=== PATIENT | male | born 1930 | race Caucasian/White ===

== ENCOUNTER 2017-04-16 22:27 | Emergency (ER) | payer MEDICARE, MEDICAID ==
[~2017-04-16] VITALS: Ht 162.6 cm; Wt 54.4 kg
--- NOTE | 2017-04-16 22:37 | NUR ---
PT AMBULATORY TO ER BED 7. PT BIB SELF C/O COUGH/CONGESTION X 2 DAYS. 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 VSS/RESP EVEN UNLABORED/NAD NOTED/SKIN WARM AND DRY/DENIES N-V-D/AOX4. AWAITING MD SILVERIO.
--- NOTE | 2017-04-16 23:00 | NUR ---
XRAY AT BEDSIDE.
[2017-04-17] MEDS ORDERED: GUAIFENESIN/CODEINE 10 ML UDC ONE (00:16)
[2017-04-17] MEDS: GUAIFENESIN/CODEINE 10 ML UDC PO PRN (00:18)
--- NOTE | 2017-04-17 00:19 | NUR ---
Patient discharged to home in stable condition. Written and verbal after care instructions given. Patient verbalizes understanding of instruction. PT ambulatory with a steady gait
[2017-04-17 00:20] VITALS: BP 125/68
== END 2017-04-17 00:21 | disposition home or self-care (01) ==
LOC: ER 22:31
DX: R05 Cough (principal); I25.2 Old myocardial infarction; Z85.820 Personal history of malignant melanoma of skin; Z88.0 Allergy status to penicillin
CPT/HCPCS: 71045-TC; A4606; Z7610